=== PATIENT | female | born 1935 | race Caucasian/White ===

== ENCOUNTER 2018-05-17 07:01 | Day surgery (SDC) | payer MEDICARE, OTHER ==
[~2018-05-17] VITALS: Ht 160 cm; Wt 67.3 kg
--- NOTE | ~2018-05-17 | OP ---
PATIENT NAME: JORGE GOYAL MEDICAL RECORD: [id number] :36 LOCATION:D.[facility] ADMISSION DATE: SURGEON: MARTÍN ALLEN MD DATE OF OPERATION: 05/17/2018 SURGEON: Martín Allen MD ANESTHESIA: TIVA by Al Boyer CRNA. DIAGNOSIS: Urge urinary incontinence. PROCEDURES: Cystoscopy and intravesical Botox injection 100 units. FINDINGS: Single ureteral orifices bilaterally. No bladder tumors. Diffuse bladder inflammation. CLINICAL HISTORY: This is an 83-year-old female who [facility] in a [place]. She has issues with urge urinary incontinence as well as atrophic vaginitis. She has been on estrogen cream to counteract the atrophic vaginitis. For the urge incontinence, she has tried Myrbetriq, which did not work. VESIcare also did not work and gave her quite significant side effects. After the failure of these 2 medications, we are now trying intravesical Botox. She is allergic to CODEINE. She was given Ancef manager transfusion to the OR. DESCRIPTION OF PROCEDURE: The patient was given IV sedation. She was then placed in the lithotomy position and prepped and draped. We used a 21-Malaysian cystoscope with 30-degree lens for visualization. She has diffuse bladder inflammation, which leads me to think that she might possibly have interstitial cystitis. At 10 different locations, we injected 1 mL of Botox solution into the bladder wall using a David's needle. Each mL of solution has 10 units of Botox dissolved in it. This gave a total dose of 100 units into the bladder. Once the procedure was completed, the bladder was completely emptied through the cystoscope sheath and then the scope was removed. I will see the patient in followup in about 2 weeks' time at which time the Botox should be fully active. TRANSINT:[id number] Voice Confirmation ID: [id number] DOCUMENT ID: [id number] MARTÍN ALLEN MD at 1406 CC: [id number] DICTATION DATE: 05/17/18 1324 PLATE CUTTER: 05/17/18 1331 [facility] [address] [place] [address]
[~2018-05-17 07:01] MED LIST: BAYER CHEWABLE81 MG PO; CITRACAL + D E1 EACH PO; CO Q-1030 MG PO; DIOVAN320 MG PO; ESTRIOL; FLUTICASONE PRO16 GM NASAL; GEODON20 MG PO; GLUCOPHAGE500 MG PO; KLOR-CON 1010 MEQ PO; MOBIC7.5 MG PO; PHENAZOPYRIDIN100 MG PO; REMERON15 MG PO; THERATEARS; TIROSINT125 MCG PO; TRAZODONE HCL150 MG PO; [UNRECOGNIZED DRUG - OTHER]
[2018-05-17 07:35] LABS: BASOPHILS 0.1 % (0-2); EOSINOPHILS 0.1 % (0-7); HEMATOCRIT 40.1 % (36.0-48.0); HEMOGLOBIN 13.1 g/dL (12-16); IMMATURE GRANULOCYTES 0.1 % (0-5); LYMPHOCYTES 14.4 % (15-50); MCH 29.2 pg (26.0-34.0); MCHC 32.7 g/dL (31.0-37.0); MCV 89.5 fL (80.0-100.0); MEAN PLATELET VOLUME 9.5 fL (7.4-10.4); MONOCYTES 7.8 % (2-11); NEUTROPHILS 77.5 % (40-80); PLATELET COUNT 260 10x3/uL (130-400); RBC 4.48 10x6/uL (4.00-5.40); RDW 14.7 % (11.5-14.5); WBC 7.9 10x3/uL (4.8-10.8)
[2018-05-17 07:37] LABS: ANION GAP 14.5 mmol/L (8-16); CALCIUM 9.8 mg/dL (8.5-10.1); CARBON DIOXIDE 27.4 mmol/L (21.0-32.0); CREATININE - SERUM 1.2 mg/dL (0.6-1.3); POTASSIUM - SERUM 3.9 mmol/L (3.5-5.1)
[2018-05-17 08:36] VITALS: BP 126/66; Ht 160 cm; Wt 67.3 kg
== END 2018-05-17 15:40 | disposition home or self-care (01) ==
LOC: D.OPS 07:01 → D.PAN 09:30 → D.OPS 09:30 → D.PAN 10:30 → D.OPS 11:30 → D.PAN 11:30 → D.OPS 15:40
PROVIDERS: Anesthesiology
DX: N39.41 Urge incontinence (principal)

== ENCOUNTER → 2018-06-15 08:34 | Outpatient (CLI) | payer MEDICARE, OTHER ==
[2018-05-17 08:36] VITALS: BMI 26.2
--- NOTE | ~2018-06-15 | EC ---
PATIENT:JORGE GOYAL DATE OF SERVICE: 06/15/18 SEX: F MEDICAL RECORD: [id number] DATE OF : 36 LOCATION:D.[facility] AGE OF PATIENT: 83 ADMISSION DATE: 06/15/18 REFERRING PHYSICIAN: INTERPRETING PHYSICIAN: PAVAN RODRÍGUEZ MD ECHOCARDIOGRAM REPORT ECHO CHARGES 4 ECHO COMPLETE Date: 06/15/18 CLINICAL DIAGNOSIS: CAD/HTN/CABG ECHOCARDIOGRAPHIC MEASUREMENTS (adult normal given) AC root (d.<3.7cm) 3.2 cm LV Septum d (<1.2 cm> 1.1 cm Valve Excursion 1.4 cm LV Septum (systole) 1.3 cm Left Atria (s.<4.0cm> 3.2 cm LVPW d(<1.2cm) 1.4 cm RV (d.<2.3cm) 3.3 cm LVPW (sytole) 1.5 cm LV diastole(<5.6CM) 4.9 cm MV E-F(>70mm/sec) cm LV systole 3.7 cm LVOT Diameter 1.6 cm MV exc.(>10mm) 1.1 cm Est.ejection fraction (50-75%) % DOPPLER: LVIT cm/sec A 99.0 cm/sec E 44.0 cm/sec LA cm/sec RVSP 25 mmHg LVOT 111 cm/sec AOP1/2T m/s Asc. Ao 158 cm/sec RVOT 67 cm/sec RA cm/sec PA 109 cm/sec AV Gradient Peak mmHg AV Mean mmHg AV Area 1.4 cm MV Gradient Peak 6.19 mmHg MV Mean 1.67 mmHg MV Area cm COMMENTS: Video Game Tester: [address] Landscape Architect: 4 Dr. Rodríguez TAPE# PACS Pericardial Effusion N DATE OF SERVICE: PROCEDURE: Transthoracic echocardiogram. FINDINGS: 1. Left ventricle is normal size, shape, structure, and function. Ejection fraction is 55%. There is no obvious regional wall motion abnormalities. 2. The left atrium is normal. 3. The aortic valve is normal. 4. There is trace mitral regurgitation, otherwise normal. ECHOCARDIOGRAM REPORT [id number] JORGE GOYAL 5. The tricuspid valve has mild tricuspid regurgitation. RVSP is normal. 6. Pericardium is normal. 7. The right ventricle is mildly dilated with good function. 8. The right atrium is normal. 9. The pulmonic valve is normal. CONCLUSIONS: For the patient stated age, this is a normal echocardiogram with the exception of mild diastolic dysfunction and mild concentric left ventricular hypertrophy. TRANSINT:[id number] Voice Confirmation ID: [id number] DOCUMENT ID: [id number] PAVAN RODRÍGUEZ MD at 0916 CC: [id number] DICTATION DATE: 06/15/18 1311 CASE MANAGEMENT SPECIALIST: 06/15/18 1513 DEP CLI 06/15/18 [facility] [address] [place] [address]
== END | disposition home or self-care (01) ==
LOC: D.ECHO 08:34
DX: I25.10 Atherosclerotic heart disease of native coronary artery without angina pectoris (principal); I10 Essential (primary) hypertension

== ENCOUNTER 2018-12-06 06:50 | Day surgery (SDC) | payer MEDICARE, OTHER ==
[2018-12-05 16:39] LABS: BASOPHILS 0.4 % (0-2); EOSINOPHILS 0 % (0-7); HEMATOCRIT 41.4 % (36.0-48.0); HEMOGLOBIN 13.6 g/dL (12-16); IMMATURE GRANULOCYTES 0.4 % (0-5); LYMPHOCYTES 20.3 % (15-50); MCH 28.1 pg (26.0-34.0); MCHC 32.9 g/dL (31.0-37.0); MCV 85.5 fL (80.0-100.0); MEAN PLATELET VOLUME 10.9 fL (7.4-10.4); NEUTROPHILS 69.9 % (40-80); RBC 4.84 10x6/uL (4.00-5.40); RDW 15.4 % (11.5-14.5); WBC 8.4 10x3/uL (4.8-10.8)
[2018-12-05 16:47] LABS: PLATELET COUNT 143 10x3/uL (130-400)
[2018-12-05 16:55] LABS: ANION GAP 16.1 mmol/L (8-16); CALCIUM 9.6 mg/dL (8.5-10.1); CARBON DIOXIDE 25.4 mmol/L (21.0-32.0); CREATININE - SERUM 1.2 mg/dL (0.6-1.3); POTASSIUM - SERUM 4.5 mmol/L (3.5-5.1)
[~2018-12-06] VITALS: Ht 160 cm; Wt 71.7 kg
[~2018-12-06 06:50] MED LIST changes: +ACETAMINOPHEN500 M1 PO; +ARTIFICIAL TEAR15 ML EACH EYE; +BENADRYL25 MG PO; +CENTRUM SILVER1 EAC3 PO; +DULCOLAX STOOL100 MG PO; +ESTRACE 0.0142.5 GM VG; +MELATONIN10 M1 PO; +MIRALAX17 GM PO; +NAPROXEN SODIU220 M1 PO; +NITROQUICK0.4 MG SL; +PRESER VISION; +SINGULAIR10 MG PO; +ULTRAM50 MG PO; +ZOFRAN4 MG PO; -[UNRECOGNIZED DRUG - OTHER]
[2018-12-06 07:42] VITALS: BP 119/61; Ht 160 cm; Wt 71.7 kg
--- NOTE | 2018-12-06 08:50 | NUR ---
REC'D FROM SURGERY. FAMILY AT BEDSIDE. GRAPE JUICE BROUGHT TO PATIENT.
--- NOTE | 2018-12-06 09:00 | NUR ---
FL TRAY BROUGHT TO PATIENT.
--- NOTE | 2018-12-06 09:20 | NUR ---
TOLERATED FL DIET. ASSISTED TO BATHROOM. SLOW SHUFFLED GAIT. STAND BY ASSIST X2. VOIDED WITH BM ALSO.
--- NOTE | 2018-12-06 09:35 | NUR ---
IV DC'D WITH CATHETER INTACT. DRESSED PATIENT FOR DC. WRITTEN AND VERBAL DC INST. GIVEN TO PATIENT AND FAMILY. VERBALIZED UNDERSTANDING.
--- NOTE | 2018-12-06 09:45 | NUR ---
DC'D HOME WITH FAMILY VIA PRIVATE VEHICLE. TAKEN TO VEHICLE VIA WC. STABLE AT TIME OF DC.
--- NOTE | 2018-12-07 10:08 | OP ---
PATIENT NAME: JORGE GOYAL MEDICAL RECORD: [id number] :36 LOCATION:D.[facility] ADMISSION DATE: SURGEON: HUY ALLEN MD DATE OF OPERATION: 12/06/2018 SURGEON: Huy Allen MD ANESTHESIA: TIVA by Al Boyer CRNA. DIAGNOSIS: Urge urinary incontinence. PROCEDURES: Cystoscopy and intravesical Botox injection 100 units. FINDINGS: Single ureteral orifices bilaterally, no bladder tumors. Trabeculated bladder with bladder inflammation. BLOOD LOSS: None. CLINICAL HISTORY: This is an 83-year-old female who has urge urinary incontinence, which has not responded to oral medications. She had intravesical Botox over 6 months ago and it did work very well for her. It has since worn off and now she comes to have a repeat treatment. She was given Ancef transmission and protection engineer to the OR. DESCRIPTION OF PROCEDURE: The patient was given IV sedation. She was placed in lithotomy position. A 21-Estonian cystoscope with 30-degree lens was used for visualization. At 10 different locations, excluding the ureteral orifices on the trigone, we injected 1 mL of Botox solution. Each mL of Botox solution had 10 units of Botox dissolved in it. Therefore, a total of 100 units of Botox was injected at various locations across the entire surface of the prostate. At the end of the procedure, the bladder was emptied through the scope sheath and the scope was removed. I will see the patient in followup in 2 weeks' time. TRANSINT:[id number] Voice Confirmation ID: [id number] DOCUMENT ID: [id number] HUY ALLEN MD at 1008 CC: [id number] DICTATION DATE: 12/06/18 0851 PECAN PICKER: 12/06/18 1218 [facility] 12/06/18 [place] [address]
== END 2018-12-06 09:45 | disposition home or self-care (01) ==
LOC: D.OPS 06:50 → D.PAN 08:30 → D.OPS 09:45 → D.PAN 11:15 → D.OPS 11:15
PROVIDERS: Anesthesiology; ATTEND Urology
DX: N39.41 Urge incontinence (principal); N32.89 Other specified disorders of bladder; Z01.812 Encounter for preprocedural laboratory examination

== ENCOUNTER → 2019-02-18 17:56 | Outpatient (CLI) | payer MEDICARE, OTHER ==
[2018-12-06 07:42] VITALS: BMI 28.0
== END | disposition home or self-care (01) ==
LOC: D.LABREF 17:56
PROVIDERS: ATTEND Urology
DX: R32 Unspecified urinary incontinence (principal)

== ENCOUNTER → 2019-02-26 08:56 | Outpatient (CLI) | payer MEDICARE, OTHER ==
[2018-12-06 07:42] VITALS: BMI 28.0
--- NOTE | 2019-02-28 13:11 | EC ---
PATIENT:JORGE GOYAL DATE OF SERVICE: 02/26/19 SEX: F MEDICAL RECORD: [id number] DATE OF : 36 LOCATION:D.[facility] AGE OF PATIENT: 83 ADMISSION DATE: 02/26/19 REFERRING PHYSICIAN: INTERPRETING PHYSICIAN: LANETTE ISRAEL MD ECHOCARDIOGRAM REPORT ECHO CHARGES 4 ECHO COMPLETE Date: 02/26/19 CLINICAL DIAGNOSIS: H/O HTN/CAD ECHOCARDIOGRAPHIC MEASUREMENTS (adult normal given) AC root (d.<3.7cm) 3.1 cm LV Septum d (<1.2 cm> 1.0 cm Valve Excursion 1.6 cm LV Septum (systole) 1.6 cm Left Atria (s.<4.0cm> 4.4 cm LVPW d(<1.2cm) 1.1 cm RV (d.<2.3cm) 2.4 cm LVPW (sytole) 1.6 cm LV diastole(<5.6CM) 5.2 cm MV E-F(>70mm/sec) cm LV systole 3.2 cm LVOT Diameter 1.7 cm MV exc.(>10mm) cm Est.ejection fraction (50-75%) % DOPPLER: LVIT cm/sec A 95.0 cm/sec E 35.0 cm/sec LA cm/sec RVSP 24.4 mmHg LVOT 74.0 cm/sec AOP1/2T m/s Asc. Ao 144 cm/sec RVOT 45.0 cm/sec RA cm/sec PA 88.0 cm/sec AV Gradient Peak 8.2 mmHg AV Mean 4.4 mmHg AV Area 1.2 cm MV Gradient Peak 3.7 mmHg MV Mean 0.84 mmHg MV Area cm COMMENTS: OP - HC Cloud Developer: 1 YULI MELY Equipment Technician: 3 Dr. Marshall TAPE# PACS Pericardial Effusion N DATE OF SERVICE: 02/26/2019 Adequate 2-D echo, color-flow and spectral Doppler, and M-mode. No LVH. LV internal dimensions are normal. LV is mildly globally hypo with EF mildly reduced at 40% to 45%. Aortic valve sclerosis without stenosis by Doppler interrogation. Left atrium is dilated at 4.4 cm. Mitral valve shows no prolapse. Mild MR. Right-sided chambers are grossly normal. Trace TR. TRANSINT:[id number] Voice Confirmation ID: [id number] DOCUMENT ID: [id number] ECHOCARDIOGRAM REPORT [id number] JORGE GOYAL,LANETTE Cash MD at 1311 CC: [id number] DICTATION DATE: 02/26/19 151 TUNNEL MINER: 02/26/19 1904 DEP CLI 02/26/19 [place] [id number] [place] [id number]
== END | disposition home or self-care (01) ==
LOC: D.HCCARDIO 08:30
PROVIDERS: ATTEND Internal Medicine Interventional Cardiology
DX: I10 Essential (primary) hypertension (principal); I25.10 Atherosclerotic heart disease of native coronary artery without angina pectoris

== ENCOUNTER 2019-04-09 12:39 | Inpatient (IN) | payer MEDICARE, OTHER ==
--- NOTE | 2019-04-09 13:30 | NUR ---
PATIENT ADMITTED TO [facility] FROM THE [facility] FOR HALLUCINATIONS. SHE IS SEEING CATS, DOGS AND PEOPLE THAT ARE NOT THERE. ALSO FOR DEPRESSION. SHE IS ALERT AND ORIENTED TO TIME, PERSON AND DATE. SHE IS LEGALLY BLIND IN LEFT EYE AND WAS PUT ON GEODON BID. SHE IS ON CIPRO FOR UTI CURRENTLY. HER CODE STATUS IS DNR. CODE WORD IS FIDO.
[2019-04-09 15:44] VITALS: BP 144/72; BMI 26.6
[2019-04-09] MEDS ORDERED: CO Q-10200 MG PO (16:45)
[2019-04-09] MEDS ORDERED: COLACE100 MG PO (16:45)
[2019-04-09] MEDS ORDERED: CENTRUM COMPLE1 EACH PO (16:46)
[2019-04-09] MEDS ORDERED: CIPRO500 MG PO (16:47)
[2019-04-09] MEDS ORDERED: TRAZODONE HCL150 MG PO ×2 (16:48→16:50)
[2019-04-09 22:45] VITALS: BP 113/63
--- NOTE | 2019-04-10 02:04 | NUR ---
B) Patient is alert and oriented to person, calm and cooperative this shift I) Administered scheduled medications as ordered, monitored for safety R) Mediation compliant, pleasant P) Continue plan of care.
[2019-04-10 06:36] LABS: BASOPHILS 0.3 % (0-2); EOSINOPHILS 0.1 % (0-7); HEMATOCRIT 38.6 % (36.0-48.0); HEMOGLOBIN 12.8 g/dL (12-16); IMMATURE GRANULOCYTES 0.1 % (0-5); LYMPHOCYTES 18.5 % (15-50); MCH 27.3 pg (26.0-34.0); MCHC 33.2 g/dL (31.0-37.0); MCV 82.3 fL (80.0-100.0); MEAN PLATELET VOLUME 9.5 fL (7.4-10.4); MONOCYTES 10.1 % (2-11); NEUTROPHILS 70.9 % (40-80); PLATELET COUNT 270 10x3/uL (130-400); RBC 4.69 10x6/uL (4.00-5.40); WBC 6.9 10x3/uL (4.8-10.8)
[2019-04-10 08:15] LABS: ALBUMIN 3.6 g/dL (3.4-5.0); ALKALINE PHOSPHATASE 84 U/L (46-116); ALT (SGPT) 23 U/L (10-68); BILIRUBIN - TOTAL 0.44 mg/dL (0.2-1.3); CALC OSMOLALITY 288 mosm/kg (275-300); CALCIUM 9.5 mg/dL (8.5-10.1); CARBON DIOXIDE 25.7 mmol/L (21.0-32.0); CHLORIDE - SERUM 105 mmol/L (98-107); CHOL - HDL RATIO 3.7 ratio (2.3-4.1); CHOLESTEROL, TOTAL 213 mg/dL (0-200); CREATININE - SERUM 1.2 mg/dL (0.6-1.3); GLUCOSE 120 mg/dL (74-106); HDL CHOLESTEROL 58 mg/dL (32-96); LDL CHOLESTEROL 135 mg/dL (0-100); LDL-HDL RATIO 2.3 ratio (1.5-3.5); PROTEIN - SERUM 6.9 g/dL (6.4-8.2); SODIUM 143 mmol/L (136-145); TRIGLYCERIDE 102 mg/dL (30-200); UREA NITROGEN 20 mg/dL (7-18); eGFR NON AFRICAN AMERICAN 45 mL/min (90-120)
--- NOTE | 2019-04-10 08:30 | NUR ---
PATIENT AWAKE AND ALERT, BUT CONFUSION NOTED. SHE THOUGHT SHE WAS SEEING A PACKAGE OVER IN CORNER.
[2019-04-10 08:37] VITALS: Wt 70.6 kg
[2019-04-10 09:03] VITALS: BP 139/72
--- NOTE | 2019-04-10 14:00 | NUR ---
PHYSICAL THERAPY HERE TO EVALUATE AND PATIENT ONLY TOOK A FEW STEPS AND WAS VERY STIFF. WILL REASSESS HER WHEN SHE IS ABLE TO FOLLOW INSTRUCTIONS.
[2019-04-10 19:42] VITALS: BP 133/71
--- NOTE | 2019-04-10 22:42 | NUR ---
B.) PT IS ALERT AND ORIENTED TO SELF ONLY. SHE USES WHEELCHAIR FOR AMBULATION. SHE IS TOTAL ASSIST WITH ADL'S. SHE IS UNABLE TO ASSIST WITH TRANSFERRING. SHE IS HALLUCINATING THAT "CHILDREN ARE BEING SCARED WITH GUNS." I.) PROVIDED PM MEDICATIONS. REDIRECT NEEDED. R.) COMPLIANT WITH ALL MEDICATIONS. PT REMAINS CONFUSED DESPITE MULTIPLE ATTEMPTS TO REDIRECT. P.) CONTINUE PLAN OF CARE
[2019-04-11 08:11] LABS: RAPID PLASMA REAGIN Non Reactive (Non Reactive)
[2019-04-11 08:32] VITALS: BP 113/69
--- NOTE | 2019-04-11 13:00 | NUR ---
NUTRITION F/U PT IS NEW TO SENIOR LIVING. NO NEW WT TO ASSESS AT THIS TIME. WILL PROVIDE REG DIET AND MONITOR PO INTAKE/WT. RD FOLLOWING
--- NOTE | 2019-04-11 13:34 | PSY ---
PATIENT NAME:JORGE GOYAL MEDICAL RECORD: [id number] : 36 LOCATION:[facility] ADMISSION DATE: 04/09/19 ACCOUNT: [id number] PSYCHIATRIC EVALUATION DATE OF EVALUATION: 04/10/19 IDENTIFYING DATA: The patient is 84 years old and she is admitted to the hospital on a voluntary basis. CHIEF COMPLAINT: Hallucinations. HISTORY OF PRESENT ILLNESS: The patient has been living at home. She has macular degeneration and has been experiencing visual hallucinations, some of which are quite distressing. Unfortunately, she also has evidence of significant dementia in addition to this. She is not wanting to hurt herself or others. She has been started on antipsychotic medications and again she is highly distressed about the hallucinations. PAST MEDICAL HISTORY: Significant for hypertension, myocardial infarction, coronary artery bypass grafting, peripheral edema, coronary artery disease, and a hysterectomy. She also has David Bonnet syndrome. PAST PSYCHIATRIC HISTORY: None. FAMILY HISTORY: Significant for cardiovascular disease, diabetes, and hypertension. ALLERGIES: LISINOPRIL, CODEINE, AND SULFUR. CURRENT MEDICATIONS: Include Geodon, Mobic, aspirin, potassium, Remeron, Diovan, melatonin, Ultram, Cipro, and trazodone. SOCIAL HISTORY: The patient is . She does have adult children involved with her care. She has no history of drug or alcohol addiction. ASSESSMENT: AXIS I: Major neurocognitive disorder of the Alzheimer's type. AXIS II: None. AXIS III: Hypertension, coronary artery disease, macular degeneration, hypothyroidism, hypertension. AXIS IV: Moderate. AXIS V: Global my assessment of functioning is 40. PLAN: At this time, the patient is admitted to the hospital for a comprehensive medical, psychological, and social evaluation. She will be treated with both mood stabilizing and memory enhancing medications. Her long-term prognosis is guarded. TRANSINT:[id number] Voice Confirmation ID: [id number] DOCUMENT ID: [id number] HELADIO DEE MD at 1334 CC: [id number] DICTATION DATE: 04/10/19 1656 WINDOW GLAZIER HELPER: 04/11/19 0032 ADM IN [facility] [address] [place] [address]
--- NOTE | 2019-04-11 19:11 | NUR ---
SPOKE WITH DAUGHTER ABOUT PT REFUSING TO EAT DINNER DUE TO BEING COLD. NURSE OFFERED PT A BLANKET AND PT REFUSED. PT REFUSED 2X. DAUGHTER AGREED IT WAS A GOOD IDEA TO VISIT ON MONDAY INSTEAD OF TODAY.
[2019-04-11 20:20] VITALS: BP 92/49
--- NOTE | 2019-04-12 03:16 | NUR ---
B.) PT IS ALERT AND ORIENTED TO SELF ONLY. SHE IS PLEASANT WITH STAFF AND PEERS. PT IS ABLE TO MAKE NEEDS KNOWN. SHE IS COOPERATIVE WITH ADL'S BUT TOTAL ASSIST WITH TRANSFER. I.) PROVIDED PM MEDICATIONS. R.) COMPLIANT WITH ALL MEDICATIONS. P.) CONTINUE PLAN OF CARE
[2019-04-12 09:36] VITALS: BP 105/67
--- NOTE | 2019-04-12 10:00 | NUR ---
PATIENT SITTING IN WHEELCHAIR. ALERT AND ORIENTED TO SELF ONLY. PT DOES NOT TALK MUCH WITH STAFF. C/O OF BEING COLD BUT AT TIMES REFUSES BLANKETS. NURSE WAS GIVING MEDICAITONS AND PT STATED "THERE IS WATER FLOWING OFF THE SIDE OF THE TABLE" 2X STAFF MEMBERS LOOKED FOR WATER ON THE FLOOR. NONE NOTED TO FLOOR. PT COMPLIANT WITH ASSESSMENT, VITALS AND MEDS. WILL CONT PLAN OF CARE.
--- NOTE | 2019-04-12 20:33 | NUR ---
PATIENT IS CONFUSED, CAN MAKE NEEDS KNOWN, NO HALLUCINATIONS OBSERVED, TAKES MEDS, WILL FOLLOW POC
[2019-04-12 21:26] VITALS: BP 123/64
--- NOTE | 2019-04-13 07:55 | NUR ---
B) The patient is pleasant, she answers questions appropriately. The third shift lieutenant stated they did not see or hear of any hallucinations from the patient. She is calm and she needs assist to dress, toilet, and stand. I) Provide prescribed meds. R) The patient is calm, she takes her meds and interacts with staff and peers well. P) Continue POC.
--- NOTE | 2019-04-13 16:37 | NUR ---
The patient's daughter's are here visiting. The patient told her daughter's "There is a beautiful horse right behind you and he sleeps in the room with me down in the basement." The patient's daughter's called the nurses over so that they could hear the story and the patient explained to Arely Nielsen RN, and this nurse that she sleeps in the basement with the horse. Explained to her that "I have not ever seen the horse." The patient went on to describe the horse. Stating "He is a beautiful black horse, he is as shiny as soot he is so black." She said she is not afraid of him, but every now and then he whinney's. She also said "There's a rubber tire in my room that fits on to the horse trailer." She asked the staff "Now, you've seen him haven't you?" Explained to her that "No, we have not, but that he sounds beautiful." She continued to speak to her family for the remainder of the visit.
--- NOTE | 2019-04-13 18:16 | NUR ---
PATIENT DID NOT EAT MUCH OF DINNER STATING THAT SHE WAS FEELING SICK TO HER STOMACH. ZOFRAN 4 MG GIVEN PO FOR NAUSEA. NO VOMITING. WILL RECHECK.
[2019-04-13 19:05] VITALS: BP 120/57
[2019-04-13 20:36] VITALS: BP 108/56
--- NOTE | 2019-04-13 21:58 | NUR ---
PATIENT IS CONFUSED, RECEIVED IN REPORT THAT SHE THINKS SHE SLEEPS IN A BASEMENT WITH A HORSE, SHE STAYS TO HERSELF. COMPLIANT WITH MEDS. WILL FOLLOW POC
--- NOTE | 2019-04-14 06:38 | NUR ---
urine obtained and taken to lab for ua and culture.
[2019-04-14 07:55] LABS: APPEARANCE HAZY (CLEAR); COLOR YELLOW (YELLOW)
[2019-04-14 07:56] LABS: BILIRUBIN NEGATIVE (NEGATIVE); GLUCOSE NEGATIVE (NEGATIVE); KETONE NEGATIVE (NEGATIVE); NITRITE NEGATIVE (NEGATIVE); PROTEIN NEGATIVE (NEGATIVE); RED CELLS - URINE 0-5 /hpf (0-5); UROBILINOGEN NORMAL (NORMAL)
[2019-04-14 07:57] LABS: BACTERIA MODERATE /hpf (NEGATIVE); MUCUS >1+ /lpf (NONE SEEN)
[2019-04-14 08:00] VITALS: BP 124/56
--- NOTE | 2019-04-14 20:10 | NUR ---
RECEIVED IN DAYROOM. SITTING IN A CHAIR WITH PEERS AT HER SIDE. CALM AND COOPERATIVE WITH CARE AND ASSESSMENT. NO SIGNS OF HALLUCINATIONS AT THIS TIME. REDIRECT AND REORIENT NEEDED. CONTINUES TO SIT QUIETLY. CONTINUE PLAN OF CARE
[2019-04-14 22:48] VITALS: BP 113/55
[2019-04-15 08:00] VITALS: BP 98/67
--- NOTE | 2019-04-15 17:33 | NUR ---
RECEIVED PT. IN DINING ROOM AT B'FAST, ALERT, CALM, COOPERATIVE, FLAT AFFECT, QUIET, COINFUSED, MEDS ADMIN PER ORDERS WITH COMPLETE MED COMPLIANCE NOTED. NO ADVERSE BEHAVIORS NOTED. CONT POC DIRECTED.
[2019-04-15 20:23] VITALS: BP 112/61
--- NOTE | 2019-04-15 21:58 | NUR ---
RECEIVED IN DAYROOM. SITTING IN A CHAIR WITH PEERS AT HER SIDE. CALM AND COOPERATIVE WITH CARE AND ASSESSMENT. NO SIGNS OF HALLUCINATIONS. REDIRECT AND REORIENT NEEDED. CONTINUES TO SIT CALMLY IN CHAIR. CONTINUE PLAN OF CARE
[2019-04-16 08:00] VITALS: BP 102/61
--- NOTE | 2019-04-16 10:00 | NUR ---
PATIENT IS AWAKE AND ALERT TO PERSON, PLACE. CALM AND COOPERATIVE WITH ASSESSMENT AND CARE. MEDICATION COMPLIANT. REDIRECT AND REORIENT NEEDED. FALL PRECAUTIONS IN PLACE. WILL CONTINUE PLAN OF CARE.
--- NOTE | 2019-04-16 10:52 | NUR ---
sw spoke to pt's dtr, stephen, and updated on pt's condition, treatment, and discharge planning. Stephen verbalized understanding of conversation.
[2019-04-16 20:10] VITALS: BP 119/69
--- NOTE | 2019-04-16 20:38 | NUR ---
RECEIVED IN DAYROOM. SITTING IN A CHAIR WITH PEERS AT HER SIDE. CALM AND COOPERATIVE WITH CARE AND ASSESSMENT. NO SIGNS OF HALLUCINATIONS. REDIRECT AND REORIENT NEEDED. CONTINUES TO SIT CALMLY IN DAYROOM. CONTINUE PLAN OF CARE
[2019-04-17 09:11] VITALS: BP 129/61
[2019-04-17] MEDS ORDERED: LEVOFLOXACIN500 MG PO (09:55)
[2019-04-17] MEDS ORDERED: DONEPEZIL HCL5 MG PO (09:56)
[2019-04-17] MEDS ORDERED: DIOVAN80 MG PO (09:57)
[2019-04-17] MEDS ORDERED: PERPHENAZINE2 MG PO (09:58)
--- NOTE | 2019-04-17 17:12 | NUR ---
RECEIVED PT IN DINING ROOM AT B'FAST, ALERT, CALM, COOPERATIVE THIS SHIFT. MEDS ADMIN PER ORDERS WITH COMPLETE COMPLIANCE NOTED. PLEASANT, QUIET. NO HALLUCINATIONS OR BEHAVIORS NOTED. CONT POC DIRECTED.
[2019-04-17 20:55] VITALS: BP 114/51
--- NOTE | 2019-04-18 00:45 | NUR ---
REC'D SITTING IN THE DAYROOM. PLEASANT AND APPROPRIATE WHEN APPROACHED. ORIENTED X4. RELATES SHE IS SUPPOSE TO GO HOME TOMORROW. RELATED SHE WAS HALLUCINATING BUT DENIES HALLUCINATIONS NOW. DID NOT OBSERVE HALLUCINATIONS BY PATIENT. ADMINISTER MEDS PER ORDERS Q SHIFT AND MONITOR COMPLIANCE. ENCOURAGE PATIENT TO TELL NURSE IF NOTICES HALLUCINATIONS. MED COMPLIANT. VERBALIZED UNDERSTANDING AND RELATES IS NO LONGER HAVING HALLUCINATIONS. CONTINUE POC AND PROVIDE SAFE ENVIRONMENT.
[2019-04-18 09:26] VITALS: BP 144/60
--- NOTE | 2019-04-18 10:55 | NUR ---
Spoke to Sameer the bull fiddle player and he said he will be here in about 30-40 minutes. He also said he will be here to assess and then said "If she meets criteria how soon will she be ready?" Explained to him that she is ready right now.
--- NOTE | 2019-04-18 11:57 | NUR ---
NUTRITION F/U PT TO DC TODAY. ~50% INTAKE RECENT MEALS. STABLE WT. RD FOLLOWING
--- NOTE | 2019-04-18 13:10 | NUR ---
PATIENT DISCHARGED TO THE [facility] THIS SHIFT.PT HAS HAD NO MORE HALLUCINATIONS. PAPERWORK FAXED TO THE [facility] AND PERSONAL ITEMS GIVEN TO DRY CHAIN PULLER. CALLED DAUGHTER TO LET HER KNOW SHE WAS HEADING BACK AND SHE WAS WAITING FOR HER.
--- NOTE | 2019-04-22 12:27 | PN ---
PATIENT:JORGE MUNOZ MEDICAL RECORD: [id number] LOCATION:[facility] ADMISSION DATE: 04/09/19 PROGRESS NOTE DATE OF SERVICE: 04/13/2019 SUBJECTIVE: Ms. Munoz is an 84-year-old female with diagnosis of macular degeneration and Zenon Bonnet syndrome. Apparently, this has gotten to such a pitch that her primary care had arranged for a treatment here. The patient states that since admission, she does not believe she has seen any of her typical hallucinations, although staff states that she was seeing water that really was not there, although there is some question whether it might have already been cleaned up. The patient has been calm, pleasant and appropriate. She reported being somewhat scared, discussed in the milieu on the unit. We discussed what I had researched as treatment recommendations as far as whenever she sees a hallucination, looking to her right or left and moving her eyes away from the object, that if she sees hallucinations in a bright or dim light that she changed the lighting and that has been found to help. The patient was able to remember my name. She was able to remember the name of her syndrome and give me the history of her treatment course with it. She is eating 100, 45, and 0%. Last bowel movement was on the 20th and slept 9.25 hours. OBJECTIVE: LATEST VITAL SIGNS: 97.5, 89, 18, 123/64, 96%. ASSESSMENT: Adjustment disorder with depressed and anxious mood, Zenon Bonnet syndrome. PLAN: We will anticipate a discharge soon if there continues to be no signs or symptoms of hallucinations. Case discussed with nursing, chart reviewed. The patient interviewed. TRANSINT:[id number] Voice Confirmation ID: [id number] DOCUMENT ID: [id number] COY CURRAN MD at 1227 CC: [id number] DICTATION DATE: 04/13/19 1329 MANAGER MACHINE: 04/13/19 1429 DIS IN 04/18/19 [place] [id number] [facility] [place] [address]
--- NOTE | 2019-04-22 12:27 | PN ---
PATIENT:JORGE MUNOZ MEDICAL RECORD: [id number] LOCATION:[facility] ADMISSION DATE: 04/09/19 PROGRESS NOTE DATE OF SERVICE: 04/12/2019 SUBJECTIVE: Ms. Munoz is an 84-year-old female who was admitted secondary to visual hallucinations. She has a history of macular degeneration and Zenon Bonnet syndromes. Apparently as an outpatient, these symptoms were so distressing, her primary care physician had arranged an inpatient admission. She states that she was seeing basically variety of different animals. She denies since admission seeing anything, although she states that she saw some water spilled by a patient and it was cleaned up. Nursing states that they did not see this water, but perhaps it could simply be a difference in timing. The patient on interview states that she has lost vision in her left. She only has 40% in her right eye, is concerned about that. She displayed some significant distress about being inpatient and had different expectations of what this experience would be like. She is eating poorly, 15%, 0% and 10% despite Megace and last bowel movement on the . She slept 10 hours last night. OBJECTIVE: VITAL SIGNS: Her latest vital signs are 120, 20, 105/67, and 99. Notably, she had blood pressures at 92/49 earlier, but her Diovan has been decreased by the nurse practitioner. ASSESSMENT: Visual hallucination secondary to macular degeneration. PLAN: Perphenazine, the patient is tolerating. She has had notably less by her own admission, visual hallucinations, but her reporting of them could be being minimized secondary to her desire for discharge. Case discussed with nursing, chart reviewed and the patient interviewed. TRANSINT:[id number] Voice Confirmation ID: [id number] DOCUMENT ID: [id number] COY CURRAN MD at 1227 CC: [id number] DICTATION DATE: 04/12/19 1620 DIE SINKING MACHINE OPERATOR: 04/13/19 0055 DIS IN 04/18/19 [place] [id number] [place] [id number]
--- NOTE | 2019-04-22 12:28 | PN ---
PATIENT:JORGE MUNOZ MEDICAL RECORD: [id number] LOCATION:[facility] ADMISSION DATE: 04/09/19 PROGRESS NOTE DATE OF SERVICE: 04/15/2019 HISTORY OF PRESENT ILLNESS: Ms. Munoz is an 84-year-old female who was admitted from the [facility] lives at the [facility] and although she states she has been having hallucinations for 2 years. Most recently, she thought she was "going crazy" according to the patient report. She has basically denied with me and nursing up until today that she has had any hallucinations, although when talking to the complex case manager complex case manager says that she did report of some cats; however, we have gotten a call from her daughter stating when they visited over the weekend the patient was continuing to report hallucinations to them. The patient equivocated stating that she had seen a soldier like looking person by her bed the night after they visited and perhaps a horse. The patient continues to be treated for UTI. The patient, when asked orientation questions, she was able to tell me that it was 2018 that it was March that she was in [place], although she did not know the hospital. She did not know the president. She could spell world forward, but could not really spell it backwards and was only 1/3 at 3 minutes. She slept 7.5 hours, eating 25, 0, and 50%. Last bowel movement on the . Her vital signs are 98.2, 81, 18, 98/67 and 98%. ASSESSMENT: Unchanged. PLAN: I have encouraged the patient to tell me of any symptomatology. She, however, is able to discern. It seems like between the reality of her visual stimulus in contrast to a straight psychotic disorder. We will talk to daughter later to elicit more information and get her concerns. Continue with antibiotic treatment for her UTI and today we will start Aricept as the patient is starting to show signs of a mild to moderate dementia. 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 PLAN: As above. Case discussed with nursing, chart reviewed. The patient interviewed. TRANSINT:[id number] Voice Confirmation ID: [id number] DOCUMENT ID: [id number] COY CURRAN MD at 1228 CC: [id number] DICTATION DATE: 04/15/19 1415 DOUGH MOLDER: 04/16/19 0024 DIS IN 04/18/19 [facility] [address] [id number]
--- NOTE | 2019-04-22 12:28 | PN ---
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 Right before admission, these hallucinations were worsening and so adult inpatient admission was arranged through her PCP. I had the opportunity to speak to one of the patient's daughters yesterday for approximately 30-minute conversation and they gave me more of the historical information on the patient's illness, various problems including a recent increase in fall risk. The patient apparently was at the assisted living and when she has had visual hallucinations and tried to reach out or go to them, falls have been involved. They also report that the patient has had 2+ years of increasing forgetfulness. We discussed how the patient was verbally talking to them about visual hallucinations; however, with us she has minimized this and continues to deny on most days unless pressed yesterday about what her daughters had said. The patient continues to report wanting to go home. However, when talking to the nurses and prior physical therapy evaluation, the patient has done little to no ambulating. We discussed this and the patient states that she needs her walker and she immediately got up. However, the patient herself admits that she cannot get up on her walker from a sitting position. She was quickly tired and had to have assistance for stabilization. She slept 7.75 hours. Eating 75%, 50%, and 25%. Last bowel movement was on . OBJECTIVE: VITAL SIGNS: Her latest vital signs are 97.9, 79, 19, 102/61, and 100%. ASSESSMENT: Unchanged. PLAN: We will ask physical therapy to come and reassess patient for what they believe is an appropriate level of assisted versus nonassisted ambulation with her. I have encouraged the patient to fully participate. I have discussed with staff the different levels of assistance at the [facility] and will probably recommend based on physical therapy evaluation that the patient move up a level of care at the [facility] because apparently, there are several. I think she is between her limited vision. Her sporadic hallucinations and her unsteady gait continues to be a fall risk and more structure is needed. Case discussed with nursing, chart reviewed, and the patient interviewed. TRANSINT:[id number] Voice Confirmation ID: [id number] DOCUMENT ID: [id number] PROGRESS NOTE [id number] AIMEE GOYAL,COY Chua MD at 1228 CC: [id number] DICTATION DATE: 04/16/19 1459 MANDOLIN REPAIR PERSON: 04/16/19 2351 DIS IN 04/18/19 [place] [address]
--- NOTE | 2019-04-22 12:28 | PN ---
PATIENT:JORGE MUNOZ MEDICAL RECORD: [id number] LOCATION:[facility] ADMISSION DATE: 04/09/19 PROGRESS NOTE DATE OF SERVICE: 04/17/2019 SUBJECTIVE: Ms. Munoz is an 84-year-old female admitted secondary to an exacerbation of her longstanding hallucinations from Zenon Bonnet syndrome and perhaps a contribution from her advancing right now mild neurocognitive disorder. I have discussed the case with nursing and social media strategist of [facility] to come and decide what level of care they think appropriate. I think she continues to be a fall risk with her limited vision, occasional hallucinations and nonsteadiness of gait. At this point, she has to have help in getting up and then she has to have an accompany beside her to decrease her risk of falls. The patient lacks insight into this and wants a lower level of care, but I feel like going back to assisted living will contribute to continuing falls. On interview, she is calm and appropriate. She is very anxious to leave. She denies hallucinations. She slept 8.5 hours, eating 25, 0 and 100% yesterday. Last bowel movement on the . ASSESSMENT: Unchanged. PLAN: We will ask nursing about perhaps some kind of prunes or some kind of dietary recommendations for her lack of bowel movements again the last one being on the . Case discussed with nursing, chart reviewed and the patient interviewed. TRANSINT:[id number] Voice Confirmation ID: [id number] DOCUMENT ID: [id number] COY CURRAN MD at 1228 CC: [id number] DICTATION DATE: 04/17/19 1006 SIGNALER: 04/17/19 1538 DIS IN 04/18/19 [id number] [place] [address]
--- NOTE | 2019-04-22 12:28 | DS ---
PATIENT:JORGE GOYAL :37 MEDICAL RECORD: [id number] DISCHARGE SUMMARY ADMISSION DATE: 04/09/19 DISCHARGE DATE: 04/18/19 HOSPITAL COURSE: An 84-year-old female, who had been living at the [facility]. She suffers from Zenon Bonnet syndrome with hallucinations due to macular degeneration and although she has had it for at least 2 years as she and her family report that they were worsening and she felt like "I was just going crazy." Family in conversation with then also notes an increase in falls as of late, they feel that the visual hallucinations contribute. She was admitted to see if anything could be done to decrease them. HOSPITAL COURSE: The patient was admitted for the above symptomatology. During the course of admission, it was noted that the patient almost entirely continued to deny hallucinations with us with a few exceptions, but the one time family came to visit, the patient was very vivid in some of her hallucinations. She seemed to feel like the nonreporting of symptoms will get her discharged sooner. The patient while here was unable to initiate ambulation on her own. She was able to use a walker, but due to fall risk, had constant assistance around her. As Zenon Bonnet syndrome, the visual hallucinations are not amenable to medication. We discussed different techniques; however, during the course of the admission it was obvious that the patient was having some mild cognitive issues, burgeoning dementia, mild major neurocognitive disorder, which might be contributing to her overall agitation and somewhat even may be the hallucinations. So during the course of admission not only was perphenazine added to perhaps help with hallucinations, but Aricept was added as well. 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 Her discharge medications include lidocaine patch transdermally once a day, Diovan 80 mg 1 p.o. every day, Aricept 5 mg at bedtime, Megace 625 one p.o. every day, Levaquin 250 mg approximately 2 doses remaining for UTI, Synthroid 125 mcg 1 p.o. every day, perphenazine 2 mg at bedtime, acetaminophen 650 mg 1 p.o. every 8 hours, MiraLax 17 grams 1 p.o. daily, Singulair 10 mg 1 p.o. every day, Mobic 15 mg 1 p.o. every day, fluconazole nasal spray 1 spray daily, Colace 100 mg 1 p.o. every day, aspirin 81 mg 1 p.o. every day, Micro-K 10 mEq 1 p.o. t.i.d., Nitrostat p.r.n., and Zofran 4 mg every 4 hours p.r.n. The patient had an admission weight of 150 and a discharge weight of 155.4. Her last vital signs included 97.3, 81, 18, 144/60, and 93%. Followup is with the [facility] internist medical doctor md. The [facility] before discharge had come and done their own evaluation, know what level of care would be appropriate for patient as this was of some concern to the family and patient herself. Case discussed with nursing, chart reviewed and patient interviewed. TRANSINT:[id number] Voice Confirmation ID: [id number] DOCUMENT ID: [id number] DISCHARGE SUMMARY REPORT [id number] JORGE GOYAL MELANIE W MD at 1228 CC: [id number] DICTATION DATE: 04/18/19 1548 REAMING MACHINE OPERATOR FOR PLASTIC: 04/19/19 0853 DIS IN 04/18/19 [facility] [address] [place] [address]
--- NOTE | 2019-04-24 15:47 | PN ---
PATIENT:JORGE GOYAL MEDICAL RECORD: [id number] LOCATION:[facility] ADMISSION DATE: 04/09/19 PROGRESS NOTE DATE OF SERVICE: 04/11/2019 SUBJECTIVE: The patient's case was discussed with staff. She has no new complaint. OBJECTIVE: The patient is in good behavioral control and reports no active hallucinations today. ASSESSMENT: Dementia. PLAN: Current medicines and therapies have been reviewed and will be maintained. Long-term prognosis is guarded. TRANSINT:[id number] Voice Confirmation ID: [id number] DOCUMENT ID: [id number] HELADIO DEE MD at 1547 CC: [id number] DICTATION DATE: 04/11/19 1450 PAYMASTER OF PURSES: 04/11/198 DIS IN 04/18/19 [facility] [address] [place] [address]
--- NOTE | 2019-04-25 14:53 | DS ---
PATIENT:JORGE GOYAL :37 MEDICAL RECORD: [id number] DISCHARGE SUMMARY ADMISSION DATE: 04/09/19 DISCHARGE DATE: 04/18/19 IDENTIFYING DATA: The patient is 84 years old and she is admitted to the hospital on a voluntary basis. HISTORY OF PRESENT ILLNESS: The patient has Zenon Bonnet syndrome and has been having some active visual hallucinations associated with some cognitive impairment. She is distressed about some of the symptoms she is having. She denies that she would want to hurt herself. HOSPITAL COURSE: The patient was admitted to the hospital and fully evaluated from both a medical, psychological, and social standpoint. It was clear she had evidence of significant cognitive impairment along with the hallucinations and she was treated with both memory enhancing and mood stabilizing medications. She did show improvement through the course of the hospitalization and was subsequently discharged. DISCHARGE DIAGNOSES: AXIS I: Major neurocognitive disorder of the Alzheimer's type. AXIS II: None. AXIS III: Hypertension, coronary artery disease, macular degeneration, hypothyroidism, hypertension. AXIS IV: Moderate. AXIS V: Global assessment of functioning is 45. PLAN: At the time of discharge, the patient was significantly better. The hallucinations had dissipated almost completely. She had no thoughts of harming herself or others and was transitioned out of the hospital. At the time of discharge, she had no evidence of acute dangerousness to herself or others and followup is to be with her primary care physician. TRANSINT:[id number] Voice Confirmation ID: [id number] DOCUMENT ID: [id number] HELADIO DEE MD at 1453 CC: [id number] DICTATION DATE: 04/24/19 170 PROFESSIONAL ORGANIZER: 04/25/19 0724 DIS IN 04/18/19 [facility] [address] [id number]
== END 2019-04-18 12:00 | disposition home or self-care (01) | DRG 57 ==
LOC: D.REHAB 12:39 → D.PSYCH 13:50
PROVIDERS: ADMIT Psychiatry & Neurology Psychiatry; ATTEND Psychiatry & Neurology Psychiatry
DX: G30.9 Alzheimer's disease, unspecified (principal); F02.81 Dementia in other diseases classified elsewhere, unspecified severity, with behavioral disturbance; R44.3 Hallucinations, unspecified; N39.0 Urinary tract infection, site not specified; I10 Essential (primary) hypertension; I25.10 Atherosclerotic heart disease of native coronary artery without angina pectoris; E03.9 Hypothyroidism, unspecified; K59.09 Other constipation; M19.90 Unspecified osteoarthritis, unspecified site; R26.9 Unspecified abnormalities of gait and mobility; H54.8 Legal blindness, as defined in USA; H35.30 Unspecified macular degeneration; F32.9 Major depressive disorder, single episode, unspecified; E53.8 Deficiency of other specified B group vitamins; G47.00 Insomnia, unspecified